=== PATIENT | male | born 1990 | race African-American/Black ===

== ENCOUNTER 2019-07-06 12:38 | Emergency (ER) | payer OTHER, SELFPAY ==
--- NOTE | 2019-07-06 14:15 | EDM.PDOC ---
<Birgit Hoyos - Last Filed: 07/06/19 14:10> ED HPI GENERAL MEDICAL PROBLEM - General Chief Complaint: Neurological Problem Stated Complaint: FINGERS,LIPS AND NOSE TINGLING Time Seen by Provider: 07/06/19 13:48 Source of Information: Reports: Patient, Significant Other History Limitations: Reports: No Limitations - History of Present Illness INITIAL COMMENTS - FREE TEXT/NARRATIVE: Patient is a pleasant 29-year-old male with a history of anxiety that presents to the ED with his significant other for concerns related to an episode he had at work where he felt like he couldn't take deep breaths, then his nose, lips, arms, and fingertips started to tingle. He states it started when he tried to take a deep breath and he felt pain over his right side that spasmed for about 30 seconds then resolved. He then tried to take a deep breath again and this time the pain was on his left side and lasted for about two minutes before it resolved. The pain the second time he reports felt like it was in his diaphragm on the left side. After that he started developing tingling of his nose, lips, fingertips, and then his arms. The tingling resolved before arrival to the ED. His significant other reports that when he called to tell her he was being brought to the ED by his coworkers, he was talking slower and sounded hesitant. She reports that he also had to be helped out of his work clothes and into the truck by his coworkers. Right now he denies chest pain, shortness of breath, abdominal pain. The only concern he has right now is he is having minimal chest tightness and feels he cannot take a deep breath, but this could be related to the fact that he says he is scared to take a deep breath because he does not want the spasming pain to happen again. - Related Data Allergies Allergy/AdvReac Type Severity Reaction Status Date / Time codeine Allergy Hives Verified 07/06/19 13:40 Penicillins Allergy Cannot Verified 07/06/19 13:40 Remember Home Meds: Home Meds . [No Known Home Meds] 07/06/19 [History] ED ROS GENERAL - Review of Systems Review Of Systems: See Below Constitutional: Reports: No Symptoms. Denies: Fever, Chills, Weakness, Fatigue , Diaphoresis, Decreased Appetite HEENT: Reports: No Symptoms. Denies: Vision Change Respiratory: Reports: Shortness of Breath (feels he cannot get a deep breath in) . Denies: Wheezing, Cough Cardiovascular: Reports: Other (Chest tightness). Denies: Chest Pain, Edema, Lightheadedness, Palpitations, Syncope GI/Abdominal: Reports: No Symptoms. Denies: Abdominal Pain, Diarrhea, Nausea, Vomiting : Reports: No Symptoms Musculoskeletal: Reports: No Symptoms. Denies: Joint Pain, Joint Swelling Skin: Reports: No Symptoms. Denies: Rash, Erythema, Wound Neurological: Reports: Paresthesia (to finger tips, arms, nose, and lips). Denies: Dizziness, Headache, Numbness, Syncope, Weakness Psychiatric: Reports: Anxiety (reports history of anxiety- reports at onset of episode he was anxious but this is subsiding.). Denies: Confusion Hematologic/Lymphatic: Reports: No Symptoms ED EXAM, NEURO - Physical Exam Exam: See Below Exam Limited By: No Limitations General Appearance: Alert, WD/WN, No Apparent Distress, Anxious (at beginning of visit- by the end he did not appear anxious anymore) Head Exam: Atraumatic, Normocephalic Neck: Normal Inspection, Supple, Non-Tender, Full Range of Motion Respiratory/Chest: No Respiratory Distress, Lungs Clear, Normal Breath Sounds, Chest Non-Tender Cardiovascular: Normal Peripheral Pulses, Regular Rate, Rhythm, No Edema, No Murmur GI/Abdominal: Normal Bowel Sounds, Soft, Non-Tender, No Organomegaly Neurological: Alert, Normal Mood/Affect, Normal Gait, No Motor/Sensory Deficits , Oriented x 3 Back Exam: Normal Inspection, Full Range of Motion Extremities: Normal Inspection, Normal Range of Motion, Non-Tender, Normal Capillary Refill Psychiatric: Normal Affect, Normal Mood Skin Exam: Warm, Dry, Intact, No Rash. No: Erythema, Rash Course - Vital Signs Last Recorded V/S: Last Vital Signs Temp 98.7 F 07/06/19 13:34 Pulse 98 07/06/19 15:45 Resp 20 07/06/19 15:45 BP 135/89 07/06/19 15:45 Pulse Ox 98 07/06/19 15:45 Departure - Departure Disposition: Home, Self-Care 01 Clinical Impression: Atypical chest pain - Discharge Information Instructions: Nonspecific Chest Pain, [id number] Referrals: PCP,None [Primary Care Provider] - Forms: ED Department Discharge, ED Return to Work/School Form Additional Instructions: [place] diet today and tomorrow, I avoid heavy lifting today and tomorrow as best he can. You can safely return to work tomorrow. Follow-up clinic if you do continue to have symptoms over the next several days. Return to ED as needed if symptoms worsening in any way. Sepsis Event Note - Evaluation Sepsis Screening Result: No Definite Risk - Focused Exam Date Exam was Performed: 07/06/19 Time Exam was Performed: 14:10 <Mayo Barnett - Last Filed: 07/08/19 08:43> Course - Re-Assessments/Exams Free Text/Narrative Re-Assessment/Exam: 07/06/19 15:20 Chest x-ray normal, discomfort is gone, discharge instructions as documented. cae engineer shows sinus rhythm, no ectopy. Vitals of been stable here in the ED. Initial history and exam was done by BLAYNE Carter student. I agree with her history and exam as documented. Interviewed and examined patient. Discharge precautions also discussed verbally with patient. Discharge instructions as documented. Departure - Departure Time of Disposition: 15:20 Condition: Fair Sepsis Event Note - Focused Exam Date Exam was Performed: 07/08/19 Time Exam was Performed: 08:42
--- NOTE | 2019-07-06 14:59 | CR ---
Chest: Portable view of the chest was obtained. Comparison: No prior chest x-ray. Heart size and mediastinum are normal. Lungs are clear. Bony structures are within normal limits. Impression: 1. Nothing acute is seen on portable chest x-ray. Diagnostic code #1 Study was dictated in [place] Standard Time
== END 2019-07-06 15:46 | disposition home or self-care (01) ==
LOC: JD.ED 12:38
DX: R07.89 Other chest pain (principal); Z88.0 Allergy status to penicillin; Z88.5 Allergy status to narcotic agent
CPT/HCPCS: 71045; 71045-26; 99282; 99284-25

== ENCOUNTER 2024-04-24 10:04 | Emergency (ER) | payer BC, OTHER ==
[2024-04-24 11:07] LABS: BASOPHILS PERCENT AUTO 0.2 % (0.0-1.0); EOSINOPHILS PERCENT AUTO 0.5 % (0.0-6.0); HEMATOCRIT 41.8 % (42.0-52.0); HEMOGLOBIN 14.7 gm/dl (14.0-18.0); IMMATURE GRAN ABSOLUTE AUTO 0.01 K/mm3 (0.00-0.05); IMMATURE GRAN PERCENT AUTO 0.2 % (0.0-0.4); LYMPHOCYTES ABSOLUTE AUTO 1.5 K/mm3 (1.0-4.8); LYMPHOCYTES PERCENT AUTO 25.6 % (24.0-44.0); MEAN CORPUSCULAR HEMOGLOBIN 28.7 pg (28.0-32.0); MEAN CORPUSCULAR HGB CONC 35.2 g/dl (32.0-36.0); MEAN CORPUSCULAR VOLUME 81.5 fl (83.0-99.0); MEAN PLATELET VOLUME 10.6 fl (9.4-12.4); MONOCYTES ABSOLUTE AUTO 0.4 K/mm3 (0.0-0.8); MONOCYTES PERCENT AUTO 6.5 % (0.0-8.0); NEUTROPHILS ABSOLUTE AUTO 3.8 K/mm3 (1.8-7.7); PLATELET COUNT,PLT 241 K/mm3 (150-400); RED BLOOD CELL COUNT 5.13 M/mm3 (4.52-5.90)
[2024-04-24 11:30] LABS: ALBUMIN 3.7 g/dl (3.4-5.0); BILIRUBIN TOTAL 0.6 mg/dL (0.2-1.0); BUN/CREATININE RATIO 11.8 (14-18); CALCIUM 9.2 mg/dL (8.5-10.1); CREATININE 1.1 mg/dL (0.7-1.3); EST CRCL DRUG DOSING (CG) 116.29 mL/min; MAGNESIUM 1.8 mg/dL (1.8-2.4); PROTEIN TOTAL,TP 7.6 g/dl (6.4-8.2)
== END 2024-04-24 12:15 | disposition home or self-care (01) ==
LOC: JD.ED 10:04
DX: R07.89 Other chest pain (principal); Z88.0 Allergy status to penicillin; Z88.5 Allergy status to narcotic agent
CPT/HCPCS: 36415; 71045; 71045-26; 80053; 83735; 84484; 85025; 85379; 93005; 99285